=== PATIENT | male | born 1955 | race Caucasian/White ===

== ENCOUNTER 2024-11-21 15:09 | Emergency (ER) | payer MEDICARE, OTHER ==
[~2024-11-21] VITALS: Ht 175.3 cm; Wt 81.8 kg
[2024-11-21 15:25] VITALS: TEMP 97
--- NOTE | 2024-11-21 16:11 | RADIOLOGY REPORT ---
CLINICAL INDICATION: ELBOW PAIN TECHNIQUE: ELBOW CMPLDI ELBOW, COMPLETE (3VW MIN), left Comparison: None FINDINGS/IMPRESSION: : There is no evidence of acute fracture or dislocation. Soft tissues are unremarkable.
--- NOTE | 2024-11-21 16:17 | RADIOLOGY REPORT ---
CLINICAL HISTORY: fall on blood thinner TECHNIQUE: Helical scanning was performed of the head from the skull base to the vertex. Multiplanar reconstructions were performed. This exam was performed according to our departmental dose optimization program. Up-to-date CT equipment and radiation dose reduction techniques are utilized as appropriate. CTDI 57.3 DLP 1134 COMPARISON: None FINDINGS: There is no evidence for acute intracranial hemorrhage, acute ischemic changes, mass, mass effect, or extra-axial fluid collection. There is no hydrocephalus or midline shift. There is no effacement of the cerebral sulci and basal subarachnoid cisterns. The reinoso-white matter differentiation is well maintained. The imaged paranasal sinuses are clear. There has been bilateral cataract extraction. IMPRESSION: NO ACUTE INTRACRANIAL ABNORMALITY SEEN.
[2024-11-21 17:00] VITALS: BP 142/78; PULSE 64; RESP 18; O2SAT 97
--- NOTE | 2024-11-21 17:07 | Physician Documentation ---
History of Present Illness ~ Chief Complaint: Mechanical Fall Stated Complaint: FALL HEAD STRIKE ON THINNERS Time Seen by MD: 16:33 Mode of Arrival: POV, Ambulatory HPI Patient is seen today with complaints of ground level fall where his left leg gave out on him and he stumbled forward and landed on his left elbow and will then left shoulder and then struck his left temporal area of his head. Patient does admit to taking blood thinners clopidogrel. Patient denies any loss of consciousness and currently denies any significant headache. Patient denies any chest pain or shortness of breath or abdominal pain or nausea, vomiting, d iarrhea and has no other concern or complaint at this time. Tetanus within 5 Years?: No Medication Reconciliation Allergies: Coded Allergies: codeine (Verified Allergy, Intermediate, hives, 11/21/24) Review of Systems Constitutional: Denies: chills, fever, weakness Eyes: Denies: pain, blurred vision ENT: Denies: ear pain, nose pain, throat pain, mouth pain Respiratory: Denies: cough, shortness of breath Cardiovascular: Denies: chest pain, palpitations Gastrointestinal: Denies: abdominal pain, nausea, vomiting Genitourinary: Denies: burning, dysuria Male Genitalia: Denies: penile discharge, testicular pain Neurological: Denies: headache, dizziness Musculoskeletal: Denies: pain, swelling Integumentary: Denies: rash, lesions Allergic/Immunologic: Denies: hives, itching Hematologic/Lymphatic: Denies: no symptoms reported Psychiatric: Denies: depression, anxiety Physical Exam Vital Signs: Temperature: 97.0, Source: Temporal, Heart Rate: 55, Respiratory Rate: 16, BP: 147/80, Pulse Oximetry: 98, Weight: 81.820 Oxygen Flow Rate: 0 Physical Exam General: Awake and Alert, no acute distress. HEENT: Conjunctiva pink, Sclera clear, Mucus Membranes moist. Neck: Supple without masses and tenderness. Resp: Unlabored. Lungs clear to auscultation bilaterally. Heart: Regular Rate and rhythm, normal S1 and S2 without murmur, rub or gallop. Musculoskeletal: Patient on exam does have some mild swelling of the left elbow with tenderness to palpation. I do not appreciate any hematoma and patient is neurovascularly intact distally. Motor function intact distally. Patient on exam does have a small abrasion over the left olecranon process without any deep laceration. Extremities: No cyanosis,clubbing or edema. Skin: Warm and Dry. Progress Results/Orders Results/Orders Vital Signs 11/21/24 11/21/24 15:25 16:57 Temp 97.0 Pulse 55 Resp 16 B/P (MAP) 147/80 Pulse Ox 98 O2 Flow Rate 0 EKG/XRAY/CT/US/VASC/MRI Bone/Soft Tissue X-Ray (Ext.) : Additional Comment X-ray of left elbow interpreted by myself today shows no sign of acute fracture, bones in anatomic alignment, no osteolytic or blastic lesions. DIAGNOSTIC RADIOLOGY Patient: CURTIS LOGAN Medical Record: [id number] [facility] : 1955, Age: 69 Sex: Male Location: ER Patient Status: [facility] ER Service Date/Time: 11/21/241528 Ordering Physician: PEYTON COX Exam: ELBOW, COMPLETE (3VW MIN) CLINICAL INDICATION: ELBOW PAIN TECHNIQUE: ELBOW CMPLDI ELBOW, COMPLETE (3VW MIN), left Comparison: None FINDINGS/IMPRESSION: : There is no evidence of acute fracture or dislocation. Soft tissues are unremarkable. Electronically Signed by:JOSH ROSENBAUM MD Date & Time: 11/21/24 1608 Dictated by: JOSH ROSENBAUM MD Dictation date and time: 11/21/24 1555 Primary Care Provider: NO PRIMARY CARE PROVIDER cc: PEYTON COX ~ CT : Impression CAT SCAN Patient: CURTIS LOGAN Medical Record: [id number] [facility] : 1955, Age: 69 Sex: Male Location: ER Patient Status: [facility] ER Service Date/Time: 11/21/24/ 1540 Ordering Physician: PEYTON COX Exam: CT HEAD CLINICAL HISTORY: fall on blood thinner TECHNIQUE: Helical scanning was performed of the head from the skull base to the vertex. Multiplanar reconstructions were performed. This exam was performed according to our departmental dose optimization program. Up-to-date CT equipment and radiation dose reduction techniques are utilized as appropriate. CTDI 57.3 DLP 1134 COMPARISON: None FINDINGS: There is no evidence for acute intracranial hemorrhage, acute ischemic changes, mass, mass effect, or extra-axial fluid collection. There is no hydrocephalus or midline shift. There is no effacement of the cerebral sulci and basal subarachnoid cisterns. The reinoso-white matter differentiation is well maintained. The imaged paranasal sinuses are clear. There has been bilateral cataract extraction. IMPRESSION: NO ACUTE INTRACRANIAL ABNORMALITY SEEN. Electronically Signed by:JOSH ROSENBAUM MD Date & Time: 11/21/241613 Dictated by: JOSH ROSENBAUM MD Dictation date and time: 11/21/241613 Primary Care Provider: NO PRIMARY CARE PROVIDER cc: PEYTON COX ~ Medical Decision Making Findings Patient is seen today with complaints of ground level fall where his left leg gave out on him and he stumbled forward and landed on his left elbow and will then left shoulder and then struck his left temporal area of his head. Patient does admit to taking blood thinners clopidogrel. Patient denies any loss of consciousness and currently denies any significant headache. Patient denies any chest pain or shortness of breath or abdominal pain or nausea, vomiting, diarrhea and has no other concern or complaint at this time. Patient did have head CT that was unremarkable as well as x-ray of left elbow that was unremarkable showed no sign of acute fracture. Patient will continue to monitor symptoms closely and return to ED with any worsening, concerning or changing symptoms. Patient will follow up with primary care in 3-5 days if no better as needed sooner. Departure Disposition: 01 HOME / SELF CARE / HOMELESS Impression: Primary Impression: Fall Qualified Codes: W19.XXXA - Unspecified fall, initial encounter Additional Impressions: Elbow pain Qualified Codes: M25.522 - Pain in left elbow Elbow abrasion Qualified Codes: S50.312A - Abrasion of left elbow, initial encounter Condition: Stable Discharge Instructions: Abrasion, Fall Prevention in the Home, Adult, [id number] Additional Instructions: Patient did have head CT that was unremarkable as well as x-ray of left elbow that was unremarkable showed no sign of acute fracture. Patient will continue to monitor symptoms closely and return to ED with any worsening, concerning or changing symptoms. Patient will follow up with primary care in 3-5 days if no better as needed sooner. Referrals: NO PRIMARY CARE PROVIDER (PCP) Signature Scribe Signature: No scribe Attestation: No scribe ANTHONY MACK PAC Nov 21, 2024 17:07
== END 2024-11-21 17:19 | disposition home or self-care (01) ==
LOC: ER 15:09
DX: S50.312A Abrasion of left elbow, initial encounter (principal); Z88.5 Allergy status to narcotic agent; W18.30XA Fall on same level, unspecified, initial encounter; Y93.89 Activity, other specified; Y92.89 Other specified places as the place of occurrence of the external cause; Y99.8 Other external cause status
CPT/HCPCS: 70450; 73080; 99284